=== PATIENT | female | born 1990 | race Caucasian/White ===

== ENCOUNTER 2019-06-23 10:44 | Emergency (ER) | payer SELFPAY ==
[2019-06-23 11:18] LABS: EOS # 0.1 (0.04-0.40); EOS % 1.2 % (1.0-5.0); HEMOGLOBIN 11.5 g/dL (12.5-16.0); MEAN CELL VOLUME 78 fl (78-100); MEAN CORPUSCULAR HEMOGLOBIN 25 pg (27-31); MEAN CORPUSCULAR HGB CONC 32 g/dL (33-37); MEAN PLATELET VOLUME 10.9 fl (7.4-10.4); MONO # 0.8 (0.20-0.80); NEU # 6.7 (1.40-6.50); PLATELET COUNT 262 K/mm3 (130-400); RED BLOOD COUNT 4.59 M/mm3 (4.10-5.30); WHITE BLOOD COUNT 9.7 K/mm3 (4.8-10.8)
[2019-06-23 11:21] LABS: ALBUMIN 4.3 g/dL (3.5-5.0)
[2019-06-23 11:22] LABS: POTASSIUM 3.5 mmol/L (3.5-5.1)
[2019-06-23 11:23] LABS: CALCIUM 9.4 mg/dL (8.3-10.5); RED CELL DISTRIBUTION WIDTH 18.5 % (11.5-14.5)
[2019-06-23 11:24] LABS: TOTAL PROTEIN 7.4 g/dL (6.4-8.3)
[2019-06-23 11:26] LABS: TOTAL BILIRUBIN 0.5 mg/dL (0.2-1.2)
[2019-06-23 12:07] LABS: URINE APPEARANCE CLOUDY; URINE BILIRUBIN NEGATIVE (NEGATIVE); URINE BLOOD NEGATIVE (NEGATIVE); URINE COLOR YELLOW; URINE GLUCOSE NEGATIVE (NEGATIVE); URINE KETONE 1+ (NEGATIVE); URINE LEUKOCYTE ESTERASE 1+ (NEGATIVE); URINE NITRATE NEGATIVE (NEGATIVE); URINE PROTEIN(semi-quant) NEGATIVE (NEGATIVE); URINE UROBILINOGEN NORMAL (NORMAL)
[2019-06-23 13:09] VITALS: BP 108/68
== END 2019-06-23 13:15 | disposition home or self-care (01) ==
LOC: ED 10:44
PROVIDERS: Family Medicine
DX: O26.891 Other specified pregnancy related conditions, first trimester (principal); R10.9 Unspecified abdominal pain; Z3A.01 Less than 8 weeks gestation of pregnancy
CPT/HCPCS: J2405; J3010; J3490; J7040